=== PATIENT | female | born 2000 | race Caucasian/White ===

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

== ENCOUNTER 2022-03-03 08:12 | Emergency (ER) | payer MEDICAID ==
[~2022-03-03] VITALS: Ht 165.1 cm; Wt 60.0 kg
[2022-03-03 08:24] VITALS: TEMP 98.3
[2022-03-03 09:13] LABS: BASO # 0.1 K/mm3 (0.0-0.2); BASO % 0.8 % (0.0-2.0); EOS # 0.3 K/mm3 (0.0-0.7); EOS % 4.3 % (0.0-4.0); GRAN # 3.6 K/mm3 (1.4-6.5); GRAN % 57.6 % (42.2-75.2); HEMATOCRIT 37.6 % (35.0-45.0); HEMOGLOBIN 12.7 g/dl (12.0-15.0); LYMPH # 1.6 K/mm3 (1.2-3.4); MEAN CELL VOLUME 82 fl (80.0-95.0); MEAN CORPUSCULAR HEMOGLOBIN 28 pg (26-32); MEAN CORPUSCULAR HGB CONC 34 g/dl (33.0-37.0); MONO # 0.7 K/mm3 (0.1-0.6); MONO % 11.1 % (1.7-9.3); PLATELET COUNT 271 K/mm3 (130-400); REDCELL DISTRIBUTION WIDTH-CV 12.7 % (11.5-14.5)
[2022-03-03 09:29] LABS: ALBUMIN 4.1 gm/dL (3.5-5.0); BILIRUBIN,TOTAL 0.9 mg/dL (0.2-1.2); CALCIUM 9.5 mg/dL (8.4-10.2); CREATININE, serum 0.83 mg/dL (0.57-1.11); POTASSIUM 3.6 mmol/L (3.5-4.5); TOTAL PROTEIN 7.4 gm/dL (6.2-8.1)
[2022-03-03] MEDS ORDERED: VALIUM5 MG/ML PO (13:41)
[2022-03-03] MEDS ORDERED: OXYCODONE H5 MG/5 ML PO (13:41)
[2022-03-03 13:59] VITALS: BP 101/51; PULSE 65
== END 2022-03-03 13:59 | disposition home or self-care (01) ==
LOC: COL.ER 08:12
PROVIDERS: Personal Emergency Response Attendant
DX: G89.29 Other chronic pain (principal); Z98.890 Other specified postprocedural states; Z28.310 Unvaccinated for COVID-19
CPT/HCPCS: J2270; J2405; J3010; J3360; J7030

== ENCOUNTER → 2022-04-14 | Outpatient (CLI) | payer MEDICAID ==
[~2022-04-14] MED LIST changes: +OXYCODONE H5 MG/5 ML PO; +VALIUM5 MG/ML PO
== END ==
LOC: COL.RAD 08:15
DX: R20.2 Paresthesia of skin (principal)
CPT/HCPCS: A9575

== ENCOUNTER 2023-09-07 11:02 | Emergency (ER) | payer MEDICAID ==
[~2023-09-07] VITALS: Ht 165.1 cm; Wt 56.8 kg
[~2023-09-07 11:02] MED LIST changes: +CEPHALEXIN500 M1 PO; +NORCO 325 MG-51 TAB PO; +PERCOCET 325 MG1 TA2 PO
[2023-09-07 11:06] VITALS: TEMP 98.3
[2023-09-07] MEDS ORDERED: LORazepam 1 MG TAB PO ONE (11:15)
[2023-09-07] MEDS ORDERED: Ketorolac 30 MG/ML VIAL IM ONE (11:15)
[2023-09-07] MEDS ORDERED: droPERidol 2.5 MG/ML 2 ML VIAL IV ONE (12:15)
[2023-09-07] MEDS ORDERED: NS 1,000 ML IV ONE (12:15)
[2023-09-07] MEDS ORDERED: diphenhydrAMINE 50 MG/ML 1 ML VIAL IV ONE (12:15)
[2023-09-07] MEDS ORDERED: fentaNYL 50 MCG/ML 2 ML VIAL IM ONE (13:45)
[2023-09-07 14:20] VITALS: BP 96/59; PULSE 80
== END 2023-09-07 14:20 | disposition home or self-care (01) ==
LOC: COL.ER 11:02
DX: F41.9 Anxiety disorder, unspecified (principal); M79.10 Myalgia, unspecified site; F17.290 Nicotine dependence, other tobacco product, uncomplicated
CPT/HCPCS: J1200; J1790; J1885; J3010; J3360; J7030

== ENCOUNTER 2024-02-21 07:50 | Emergency (ER) | payer MEDICAID ==
[~2024-02-21] VITALS: Ht 165.1 cm; Wt 59.1 kg
[2024-02-21 07:55] VITALS: BP 119/58; PULSE 59; TEMP 98.5
== END 2024-02-21 10:00 | disposition left against medical advice (07) ==
LOC: COL.ER 07:50
DX: R05.9 Cough, unspecified (principal)

== ENCOUNTER 2024-05-10 17:25 | Observation (INO) | payer SELFPAY ==
[~2024-05-10] VITALS: Ht 170.2 cm; Wt 63.6 kg
[2024-05-10 18:10] LABS: BASO % 0.5 % (0.0-2.0); EOS # 0.2 K/mm3 (0.0-0.7); EOS % 3.3 % (0.0-4.0); GRAN # 2.9 K/mm3 (1.4-6.5); GRAN % 53.6 % (42.2-75.2); LYMPH # 1.8 K/mm3 (1.2-3.4); LYMPH % 33.3 % (20.0-51.0); MEAN CELL VOLUME 87 fl (80.0-100.0); MEAN CORPUSCULAR HGB CONC 33 g/dl (33.0-37.0); MEAN PLATELET VOLUME 10.5 fl (7.4-10.4); MONO # 0.5 K/mm3 (0.1-0.6); MONO % 9.1 % (1.7-9.3); PLATELET COUNT 205 K/mm3 (130-400); RED BLOOD COUNT 3.41 M/mm3 (4.10-5.30); REDCELL DISTRIBUTION WIDTH-CV 14.7 % (11.5-14.5)
[2024-05-10 18:12] LABS: HEMATOCRIT 29.6 % (37.0-47.0); HEMOGLOBIN 9.7 g/dl (12.5-16.0); MEAN CORPUSCULAR HEMOGLOBIN 28 pg (27-31)
[2024-05-10] MEDS ORDERED: fentaNYL 50 MCG/ML 2 ML VIAL IV ONE ×2 (18:15→19:30)
[2024-05-10 18:29] LABS: ALANINE AMINOTRANSFERASE 12 U/L (0-55); ALBUMIN 2.8 g/dL (3.5-5.0); ALKALINE PHOSPHATASE 51 U/L (40-150); ANION GAP 7 mmol/L (7-16); AST,SGOT 21 U/L (5-34); BILIRUBIN,TOTAL 0.4 mg/dL (0.2-1.2); BLOOD UREA NITROGEN 5 mg/dL (7-19); CALCIUM 8.6 mg/dL (8.4-10.2); CHLORIDE 106 mEq/L (98-107); CREATININE, serum 0.73 mg/dL (0.57-1.11); GLUCOSE 84 mg/dL (70-99); POTASSIUM 3.5 mEq/L (3.5-4.5); SODIUM 137 mEq/L (136-145); TOTAL PROTEIN 5.7 g/dl (6.2-8.1)
[2024-05-10 18:33] LABS: ALCOHOL(ethanol),MEDICAL < 10 mg/dL (0-10)
[2024-05-10] MEDS ORDERED: Iohexol 300 - 100 ML VIAL IV ONE (19:10)
[2024-05-10] MEDS ORDERED: NS 100 ML IV ONE (19:11)
[2024-05-10] MEDS ORDERED: oxyCODONE/Acetaminophen 5-325 MG TAB PO ONE (20:30)
--- NOTE | 2024-05-10 20:35 | NUR ---
[facility] in-house, awaiting patient arrival for bedside US.
--- NOTE | 2024-05-10 20:49 | NUR ---
Telephone report received from ED nurse.
--- NOTE | 2024-05-10 21:04 | NUR ---
To LR 5 per wheelchair from ED. Allowed to empty bladder prior to bedside US.
--- NOTE | 2024-05-10 21:07 | NUR ---
[facility] here, performs bedside US. Estimates gestational age of fetus to be between 18-20 weeks.
[2024-05-10 21:10] VITALS: BP 122/65; PULSE 56; TEMP 97.9
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
--- NOTE | 2024-05-10 21:21 | NUR ---
Patient mother here, speaks with her about plan to discharge to home, have patient follow-up with [facility], [facility] in morning to schedule formal US, and get everything set up for regular OB visits from there. Verbalizes understanding.
--- NOTE | 2024-05-10 21:23 | NUR ---
supervisor sample contacted by this parts data writer for home pack per ' verbal order.
[2024-05-10] MEDS ORDERED: Home HYDROcodone/Acetaminophen 5/325 MG #4 TABS/PACK PO ONE (21:30)
--- NOTE | 2024-05-10 21:48 | NUR ---
Instructions for home pack given. Informed cannot take next dose until 0100. Verbalize understanding. Patient mother at bedside, verbalizes understanding. Aware the medication has Tylenol in it, not to exceed 1000mg Tylenol in 6-8 hour period.
--- NOTE | 2024-05-10 21:52 | NUR ---
Discharged to home. Off of unit per wheelchair. Accompanied by JAME Wise, and patient mother here to drive patient home.
== END 2024-05-10 21:52 | disposition home or self-care (01) ==
LOC: COL.ER 17:25 → LDR 20:21
PROVIDERS: Nurse Practitioner; ADMIT Obstetrics & Gynecology
DX: O9A.212 Injury, poisoning and certain other consequences of external causes complicating pregnancy, second trimester (principal); S20.212A Contusion of left front wall of thorax, initial encounter; S16.1XXA Strain of muscle, fascia and tendon at neck level, initial encounter; V49.88XA Car occupant (driver) (passenger) injured in other specified transport accidents, initial encounter; Y92.410 Unspecified street and highway as the place of occurrence of the external cause
CPT/HCPCS: J3010; Q9967